=== PATIENT | female | born 1990 | race Caucasian/White ===

== ENCOUNTER 2019-02-25 00:03 | Inpatient (IN) | payer OTHER ==
[~2019-02-25] VITALS: Ht 177.8 cm; Wt 114.0 kg
--- OUTSIDE RECORDS SUMMARY | ~2019-02-25 | XMS | Clinical Summary ---
Demographics + + + | Address | [address] | | | [place] [address] | + + + | Home Phone | | + + + | Preferred Language | Unknown | + + + | Marital Status | | + + + | Scientologist Affiliation | 1013 | + + + | Race | Unknown | + + + | Ethnic Group | Unknown | + + + Author + + + | Author | [facility] | | | and [place] | + + + | Organization | [facility] | | | and [place] | + + + | Address | Unknown | + + + | Phone | Unavailable | + + + Support + + + + + | Name | Relationship | Address | Phone | + + + + + | Mac Crowe | ECON | [address] | | | | | [place], [place] | | | | | [address] | | + + + + + | Bernie Nino | ECON | Unknown | | + + + + + Care Team Providers + +------+ + | Care Co Founder And Chief Strategy Officer Name | Role | Phone | + +------+ + | Pablo Mercedes | PP | | | MD | | | + +------+ + Allergies + + + + + + | Active Allergy | Reactions | Severity | Noted | Comments | | | | | Date | | + + + + + + | Penicillins | | Medium | 07/13/20 | | | | | | 14 | | + + + + + + Medications + + + +---------+------+------+-------+ | Medication | Sig | Dispensed | Refills | Star | End | Statu | | | | | | t | Date | s | | | | | | Date | | | + + + +---------+------+------+-------+ | ergocalciferol | Take 1,000 Units by | | 0 | | | Activ | | (VITAMIN D-2) 50,000 | mouth Once a week. | | | | | e | | units capsule | | | | | | | + + + +---------+------+------+-------+ | Ascorbic Acid | Take 1,000 mg by | | 0 | | | Activ | | (VITAMIN C) 1000 MG | mouth Daily. | | | | | e | | tablet | | | | | | | + + + +---------+------+------+-------+ | 27-0.8 mg | Take 1 tablet by | | 0 | | | Activ | | multivitamin tablet | mouth Daily. | | | | | e | + + + +---------+------+------+-------+ | ibuprofen | Take 1 tablet by | 30 | 1 | 01/0 | | Activ | | (ADVIL,MOTRIN) 600 | mouth every 6 hours | tablet | | 4/20 | | e | | MG tablet | as needed for Pain. | | | 17 | | | + + + +---------+------+------+-------+ Active Problems + + + | Problem | Noted Date | + + + | Chronic insomnia | | + + + Family History + + +------+ + | Medical History | Relation | Name | Comments | + + +------+ + | Other (see comment) | Father | | night guard worker | + + +------+ + | Other (see comment) | Mother | | insomnia | + + +------+ + + +------+--------+ + | Relation | Name | Status | Comments | + +------+--------+ + | Brother | | Alive | | + +------+--------+ + | Father | | Alive | | + +------+--------+ + | Mother | | Alive | | + +------+--------+ + Social History + +-------+ +--------+------+ | Tobacco Use | Types | Packs/Day | Years | Date | | | | | Used | | + +-------+ +--------+------+ | Never Smoker | | | | | + +-------+ +--------+------+ + +---+---+---+ | Smokeless Tobacco: | | | | | Never Used | | | | + +---+---+---+ + + +---------+ + | Alcohol Use | Drinks/We | oz/Week | Comments | | | ek | | | + + +---------+ + | Yes | | | Rare - once a month | + + +---------+ + + + + | Sex Assigned at | Date Recorded | | | | + + + | Not on file | | + + + + + + + | Job Start Date | Occupation | Industry | + + + + | Not on file | Not on file | Not on file | + + + + + + + + | Travel History | Travel Start | Travel End | + + + + + + | No recent travel history available. | + + Last Filed Vital Signs + + + + | Vital Sign | Reading | Time Taken | + + + + | Blood Pressure | 136/87 | 10/17/2016799 PST | + + + + | Pulse | 73 | 10/17/2016799 PST | + + + + | Temperature | 36.8 C (98.2 F) | 10/17/2016799 PST | + + + + | Respiratory Rate | 16 | 10/17/2016799 PST | + + + + | Oxygen Saturation | 98% | 10/15/2016724 PST | + + + + | Inhaled Oxygen | - | - | | Concentration | | | + + + + | Weight | 108.9 kg (240 lb) | 10/14/20162222 PST | + + + + | Height | 177.8 cm (5' 10") | 10/14/20162222 PST | + + + + | Body Mass Index | 34.44 | 10/14/20162222 PST | + + + + Plan of Treatment + + + + + | Health Maintenance | Due Date | Last Done | Comments | + + + + + | Vaccine: | | | | | Dtap/Tdap/Td (1 - | 9 | | | | Tdap) | | | | + + + + + | Cervical Cancer | | | | | Screening (Pap) | 1 | | | + + + + + | Vaccine: Influenza | | | | | (Season Ended) | 9 | | | + + + + + Results Not on filefrom Last 3 Months Insurance + +--------+ +--------+ +---------+------+ | Payer | Benefi | Subscriber | Effect | Phone | Address | Type | | | t Plan | ID | dillan | | | | | | / | | Dates | | | | | | Group | | | | | | + +--------+ +--------+ +---------+------+ | [employer] | UNITED | [id number] | 12/13/19 | [phone] | | PPO | | | | | 14-Pre | 2 | | | | | HEALTH | | sent | | | | | | CARE | | | | | | | | PPO | | | | | | + +--------+ +--------+ +---------+------+ + +--------+ +--------+ + + | Guarantor Name | Accoun | Relation to | Date | Phone | Billing Address | | | t Type | Patient | of | | | | | | | | | | + +--------+ +--------+ + + | Carolyn Peralta | Person | Self [birth year] | [address] | | [place] | al/Fam | | 1989 | [phone] | [place] [address] | | | nimo | | | 6 (Home) | | + +--------+ +--------+ + + Advance Directives Patient has advance care planning documents, and code status on file. For more information, please contact:[facility] [place] [address] + + + + + | Code Status | Date | Date | Comments | | | Activated | Inactivated | | + + + + + | Full Code | 10/14/2016 | 10/17/2016 | | | | 21:24 | 19:01 | | + + + + +
--- NOTE | 2019-02-25 09:30 | PR ---
[facility] [address] [place], [place] [address] Signed Progress Notes IP Datetime Report Generated by CPN: 02/25/2019 09:30 PROGRESS NOTES: [id number] Impression: Reassuring heart rate Plan: Cervical Ripening Other Plans: Cook Cath Other Informed Consents: Cook Cath VITAL SIGNS: [id number] Vital Signs: Reviewed; Within Normal Limits EXAM: [id number] Dilatation: 1.5 Effacement: 60 Station: -3 Uterine Contractions: q 2-5 min, non-painful MEMBRANES: [id number] Membrane Status: Intact Comments: Called to pt room to evaluate FHT. Pt w/ prolonged decel @ 0838, then minimal variabiltiy with recurrent late decelerations. Intrauterine recussitation performed with IVF bolus, 02, and maternal repositioning. Now accelerations present and variability improved. Cervix still unripe. Discussed Cook cath for continued cervical ripening. Reviewed FHT and indications for should that be required. All questions answered and pt desires Cook Cath. Fetus A: [id number] FHR Baseline: 150 Variability: Minimal - Undetectable to <5bpm Accelerations: 15X15 Decelerations: Variable FHR Category: Category II Presentation: Vertex Comments on Fetus A: No evidence of metabolic acidosis Fetus B: [id number] Signing Physician: Becca Mederos DO Copies: ~ *Electronically Signed* 02/25/19 4246 BECCA MEDEROS DO PATIENT NAME: AMADEO WATSON PROGRESS NOTE DATE OF : 90 PHYSICIAN: BECCA MEDEROS DO [facility] #: [id number] REPORT IS CONFIDENTIAL AND NOT TO BE RELEASED WITHOUT AUTHORIZATION
--- NOTE | 2019-02-25 09:56 | PR ---
[facility] [address] [place], [place] [address] Signed Progress Notes IP Datetime Report Generated by LONNY: 02/25/2019 09:56 PROGRESS NOTES: [id number] Impression: Normal progression of labor; Reassuring heart rate Procedures: Sterile Vag Exam Other Procedures: Cook Cath placement Plan: Continue present management; Cervical Ripening Other Plans: Cook Cath Other Informed Consents: Cook Cath VITAL SIGNS: [id number] Vital Signs: Reviewed; Within Normal Limits EXAM: [id number] Dilatation: 2.0 Effacement: 80 Station: -3 Uterine Contractions: Irritability MEMBRANES: [id number] Membrane Status: Intact Comments: Pt seen and examined. Doing well. Reviewed reassuring FHT. Discussed Cook cath again and pt and agree. Cook cath placed per manufacture's instructions without difficulty. 40cc sterile water in uterine balloon, and 20cc in vaginal balloon. Will serially increase to 80cc/balloon. Continue cervical ripening Fetus A: [id number] FHR Baseline: 145 Variability: Moderate 6-25bpm Accelerations: 15X15 Decelerations: Variable FHR Category: Category II Presentation: Vertex Comments on Fetus A: No evidence of metabolic acidosis Fetus B: [id number] Signing Physician: Becca Medreos DO Copies: ~ *Electronically Signed* 02/25/19 0956 BECCA MEDEROS DO PATIENT NAME: AMADEO WATSON PROGRESS NOTE DATE OF : 90 PHYSICIAN: BECCA MEDEROS DO RPT #: [id number] REPORT IS CONFIDENTIAL AND NOT TO BE RELEASED WITHOUT AUTHORIZATION
--- NOTE | 2019-02-25 11:32 | PR ---
[facility] [address] [place], [place] [address] Signed Progress Notes IP Datetime Report Generated by LONNY: 02/25/2019 11:32 PROGRESS NOTES: [id number] Impression: Normal progression of labor; Reassuring heart rate Procedures: Artificial ROM; Intrauterine Pressure Catheter; Scalp Electrode; Sterile Vag Exam Other Procedures: Cook Cath placement Plan: Continue present management; Anesthesia consult; Anticipate Vaginal Delivery Other Plans: Cook Cath Other Informed Consents: AROM, IUPC, FSE VITAL SIGNS: [id number] Vital Signs: Reviewed; Within Normal Limits EXAM: [id number] Dilatation: 6.0 Effacement: 80 Station: -3 Uterine Contractions: q 2-3 m MEMBRANES: [id number] Membrane Status: Intact ROM Note: Reviewed AROM in detail and discussed risks/benefits. Vertex well applied and bulging bag noted. AROM performed without difficulty for moderate amount of clear fluid. IUPC and FSE then placed without difficulty. Comments: Pt seen and examined. Uncomfortable w/ contractions. Cook cath dilated cervix, noted to be in vagina, and removed. Cervix 6 / 80 w/ bulging bag noted. Variabile decelerations w/ moderate variability recently noted. Discussed AROM w/ placement of internal monitors, and pt and agree. AROM performed easily as above and IUPC and FSE placed w/out difficulty. Mother and baby tolerated well. Pt desires epidural. Reviewed anticipated course of labor. All questions answered Fetus A: [id number] FHR Baseline: 140 Variability: Moderate 6-25bpm Accelerations: 15X15 Decelerations: Variable FHR Category: Category II Presentation: Vertex Other Presentation: AZAR Comments on Fetus A: No evidence of metabolic acidosis Fetus B: [id number] Signing Physician: Becca Mederos DO *Electronically Signed* 02/25/191131 BECCA MEDEROS DO PATIENT NAME: WALTERAMADEO PROGRESS NOTE DATE OF : 90 PHYSICIAN: BECCA MEDEROS DO RPT #: [id number] REPORT IS CONFIDENTIAL AND NOT TO BE RELEASED WITHOUT AUTHORIZATION [address] [place] [address] Signed Copies: ~ *Electronically Signed* 02/25/191131 BECCA MEDEROS DO PATIENT NAME: WALTERAMADEO PROGRESS NOTE DATE OF : 90 PHYSICIAN: BECCA MEDEROS DO RPT #: [id number] REPORT IS CONFIDENTIAL AND NOT TO BE RELEASED WITHOUT AUTHORIZATION
--- NOTE | 2019-02-25 12:17 | PR ---
[facility] [address] [place], [place] [address] Signed Progress Notes IP Datetime Report Generated by LONNY: 02/25/2019 12:17 PROGRESS NOTES: [id number] Impression: Normal progression of labor Procedures: Artificial ROM; Intrauterine Pressure Catheter; Scalp Electrode; Sterile Vag Exam Other Procedures: Cook Cath placement Plan: Anesthesia consult Other Plans: Intrauterine recussitation Informed Consent Obtain: Vaginal Delivery; Section Delivery Other Informed Consents: AROM, IUPC, FSE VITAL SIGNS: [id number] Vital Signs: Reviewed; Within Normal Limits EXAM: [id number] Dilatation: 6.0 Effacement: 80 Station: -2 Uterine Contractions: q 1-2 minutes MEMBRANES: [id number] Membrane Status: Intact ROM Note: Reviewed AROM in detail and discussed risks/benefits. Vertex well applied and bulging bag noted. AROM performed without difficulty for moderate amount of clear fluid. IUPC and FSE then placed without difficulty. Comments: Called to pt room for prolonged deceleration. Variable decel down to _60 for 2-3 minutes. FHT improved w/ repositioning, O2, and IV fluid bolus. Anesthesia @ bedside to place epidural, but has not started procedure. Will continue hands/knees. If FHT reassuring, will proceed with epidural. Will consider amnioinfusion and possible terb for tachysystole. No pitocin. Fetus A: [id number] FHR Baseline: 130 Variability: Moderate 6-25bpm Accelerations: 15X15 Decelerations: Variable; Prolonged FHR Category: Category II Presentation: Vertex Other Presentation: AZAR Comments on Fetus A: prolonged variable deceleration w/ recent accelerations Fetus B: [id number] Signing Physician: Becca Mederos DO *Electronically Signed* 02/25/191216 BECCA MEDEROS DO PATIENT NAME: AMADEO WATSON PROGRESS NOTE DATE OF : 90 PHYSICIAN: BECCA MEDEROS DO RPT #: [id number] REPORT IS CONFIDENTIAL AND NOT TO BE RELEASED WITHOUT AUTHORIZATION [address] [place], [place] [address] Signed Copies: ~ *Electronically Signed* 02/25/191216 BECCA MEDEROS DO PATIENT NAME: AMADEO WATSON PROGRESS NOTE DATE OF : 90 PHYSICIAN: BECCA MEDEROS DO RPT #: [id number] REPORT IS CONFIDENTIAL AND NOT TO BE RELEASED WITHOUT AUTHORIZATION
--- NOTE | 2019-02-25 12:26 | PR ---
[facility] [address] [place], [place] [address] Signed Progress Notes IP Datetime Report Generated by LONNY: 02/25/2019 12:26 PROGRESS NOTES: [id number] Impression: Reassuring heart rate Procedures: Amnio Infusion Other Procedures: Terb Plan: Anesthesia consult Other Plans: Intrauterine recussitation Informed Consent Obtain: Risks, Benefits and Alternatives Discussed Other Informed Consents: Amnioinfusion, Terb, indications for if needed VITAL SIGNS: [id number] Vital Signs: Reviewed; Within Normal Limits EXAM: [id number] Dilatation: 6.0 Effacement: 80 Station: -2 Uterine Contractions: q 1-2 minutes MEMBRANES: [id number] Membrane Status: Intact Amniotic Fluid Color: Clear ROM Note: Reviewed AROM in detail and discussed risks/benefits. Vertex well applied and bulging bag noted. AROM performed without difficulty for moderate amount of clear fluid. IUPC and FSE then placed without difficulty. Comments: Reviewed progress w/ pt and improved FHT. Will give one dose terbulaline and will start amnioinfusion (300cc bolus then 100cc/hr continuous). Ok to proceed with epidural. Reviewed indications for delivery if needed, and pt states that she would very much like to avoid if possible. All questions answered Fetus A: [id number] FHR Baseline: 135 Variability: Minimal - Undetectable to <5bpm Accelerations: 15X15 Decelerations: Early; Late FHR Category: Category II Presentation: Vertex Other Presentation: AZAR Comments on Fetus A: prolonged variable deceleration w/ recent accelerations Fetus B: [id number] Signing Physician: Becca Mederos DO *Electronically Signed* 02/25/19 1226 BECCA MEDEROS DO PATIENT NAME: AMADEO WATSON PROGRESS NOTE DATE OF : 90 PHYSICIAN: BECCA MEDEROS DO RPT #: [id number] REPORT IS CONFIDENTIAL AND NOT TO BE RELEASED WITHOUT AUTHORIZATION [address] [place] [address] Signed Copies: ~ *Electronically Signed* 02/25/19 [facility] ORINDABECCA DO PATIENT NAME: AMADEO WATSON PROGRESS NOTE DATE OF : 90 PHYSICIAN: BECCA MEDEROS DO RPT #: [id number] REPORT IS CONFIDENTIAL AND NOT TO BE RELEASED WITHOUT AUTHORIZATION
--- NOTE | 2019-02-25 12:51 | PR ---
[facility] [address] [place], [place] [address] Signed Progress Notes IP Datetime Report Generated by LONNY: 02/25/2019 12:51 PROGRESS NOTES: [id number] Impression: Normal progression of labor; Reassuring heart rate Procedures: Sterile Vag Exam Other Procedures: Terb Plan: Continue present management Other Plans: Intrauterine recussitation Informed Consent Obtain: Risks, Benefits and Alternatives Discussed Other Informed Consents: Amnioinfusion, Terb, indications for if needed VITAL SIGNS: [id number] Vital Signs: Reviewed; Within Normal Limits EXAM: [id number] Dilatation: 7.0 Effacement: 90 Station: -2 Uterine Contractions: q 2 minutes MEMBRANES: [id number] Membrane Status: Intact Amniotic Fluid Color: Clear ROM Note: Reviewed AROM in detail and discussed risks/benefits. Vertex well applied and bulging bag noted. AROM performed without difficulty for moderate amount of clear fluid. IUPC and FSE then placed without difficulty. Comments: Pt seen and examined. Much more comfortable w/ epidural. Ctxs now regular q 2-3 minutes s/p one dose terbutaline. Amnioinfusion running, and while variable decelerations still present are improved. Cx now 7/90/-2. Will continue position changes to encourage cervical dilation and descent. All questions answered Fetus A: [id number] FHR Baseline: 150 Variability: Moderate 6-25bpm Accelerations: 15X15 Decelerations: Variable FHR Category: Category II Presentation: Vertex Other Presentation: ROT Comments on Fetus A: No evidence of metabolic acidosis. Fetus B: [id number] Signing Physician: Becca Mederos DO *Electronically Signed* 02/25/19 125 BECCA MEDEROS DO PATIENT NAME: AMADEO WATSON PROGRESS NOTE DATE OF : 90 PHYSICIAN: BECCA MEDEROS DO RPT #: [id number] REPORT IS CONFIDENTIAL AND NOT TO BE RELEASED WITHOUT AUTHORIZATION [address] [place] [address] Signed Copies: ~ *Electronically Signed* 02/25/19 [facility] MEDEROSBECCA DO PATIENT NAME: AMADEO WATSON PROGRESS NOTE DATE OF : 90 PHYSICIAN: BECCA MEDEROS DO RPT #: [id number] REPORT IS CONFIDENTIAL AND NOT TO BE RELEASED WITHOUT AUTHORIZATION
--- NOTE | 2019-02-26 09:40 | PR ---
[facility] [address] [facility] [place], [place] [address] Signed PP Progress Notes Datetime Report Generated by CPN: 02/26/2019 09:40 SUBJECTIVE: [id number] Pain: Within normal limits Nausea/Vomiting: Denies Flatus: Yes Bowel Movement: No Vital Signs: [id number] Vital Signs: Reviewed; Within Normal Limits EXAM: [id number] Cardiovascular: Normal Respiratory: Normal Abdomen/Uterus: Normal Lochia: Normal Vulva/Perineum: Not Done Breasts: Not Done CVA Tenderness: Normal Extremities: Normal Incision: Not Applicable Progress: Normal Exam Comments: Fundus firm U-2 nontender IMPRESSION/PLAN/PROCEDURES: [id number] Impression: Normal progression Plan: Discharge Progress Notes: Pt seen and examined. Doing well. Ambulating, voiding, and tolerating full diet. Pain and lochia minimal. Breast feeding well. No fevers/chills or other concerns. Desires d/c home. Reviewed d/c instructions in detail. All questions answered Signing Physician: Becca Mederos DO Copies: ~ *Electronically Signed* 02/26/19 0940 BECCA MEDEROS DO PATIENT NAME: AMADEO WATSON PROGRESS NOTE DATE OF : 90 PHYSICIAN: BECCA MEDEROS DO RPT #: [id number] REPORT IS CONFIDENTIAL AND NOT TO BE RELEASED WITHOUT AUTHORIZATION
== END 2019-02-26 15:50 | disposition home or self-care (01) | DRG 807 ==
LOC: FBC 00:03
PROVIDERS: ADMIT Obstetrics & Gynecology
PROC: 10E0XZZ Delivery of Products of Conception, External Approach (ICD-10-PCS; principal; 2019-02-25)
PROC: 0KQM0ZZ Repair Perineum Muscle, Open Approach (ICD-10-PCS; 2019-02-25)
PROC: 0UQMXZZ Repair Vulva, External Approach (ICD-10-PCS; 2019-02-25)
PROC: 10907ZC Drainage of Amniotic Fluid, Therapeutic from Products of Conception, Via Natural or Artificial Opening (ICD-10-PCS; 2019-02-25)
PROC: 3E0P7VZ Introduction of Hormone into Female Reproductive, Via Natural or Artificial Opening (ICD-10-PCS; 2019-02-25)
PROC: 0U7C7ZZ Dilation of Cervix, Via Natural or Artificial Opening (ICD-10-PCS; 2019-02-25)
PROC: 10H07YZ Insertion of Other Device into Products of Conception, Via Natural or Artificial Opening (ICD-10-PCS; 2019-02-25)
PROC: 00HU33Z Insertion of Infusion Device into Spinal Canal, Percutaneous Approach (ICD-10-PCS; 2019-02-25)
PROC: 3E0R3BZ Introduction of Anesthetic Agent into Spinal Canal, Percutaneous Approach (ICD-10-PCS; 2019-02-25)
DX: O26.03 Excessive weight gain in pregnancy, third trimester (principal); Z37.0 Single live birth; Z3A.39 39 weeks gestation of pregnancy; O76 Abnormality in fetal heart rate and rhythm complicating labor and delivery; O99.62 Diseases of the digestive system complicating childbirth; K21.9 Gastro-esophageal reflux disease without esophagitis; O70.1 Second degree perineal laceration during delivery; O71.82 Other specified trauma to perineum and vulva; Z88.0 Allergy status to penicillin
CPT/HCPCS: 36415; 85027; J2370; J2590; J3105

== ENCOUNTER 2021-04-06 07:55 | Day surgery (SDC) | payer OTHER ==
[~2021-04-06] VITALS: Ht 177.8 cm; Wt 75.0 kg
--- NOTE | 2021-04-06 12:01 | NUR ---
04/06/21 1201 Kirsten Harris 1155- PT ARRIVES TO PACU NONAROUSABLE TO NOXIOUS STIMULI WITH AN OPA IN PLACE. RESP EVEN AND UNLABORED. OXYGEN SAT HIGH 90'S TO 100% ON 6L VIA MASK. 1159- PT AROUSING ON HER OWN AND YAWNS. OPA REMOVED. PT UPDATED THAT SHE IS IN THE RECOVERY ROOM. PT NODS AND FALLS BACK TO SLEEP.
--- NOTE | 2021-04-06 13:07 | NUR ---
PATIENT BACK IN DAY SURGERY ROOM FROM PACU. RATES PAIN 3/10 IN ABDOMEN. DENIES NAUSEA. DROWSY. VS CHECKED. ABDOMEN WITH 3 LAPAROSCOPIC SITES WITH BANDAIDS. UMBILICAL BANDAID HAS SCANT AMOUNT OF DRAINAGE. LATERAL BANDAIDS CLEAN, DRY AND INTACT. YADAV IN PLACE. SCDs ON. CALL LIGHT WITHIN REACH. AT BEDSIDE. ICE WATER PLACED ON BEDSIDE TABLE.
[2021-04-06] MEDS ORDERED: HYDROCODON-ACE1 EA10 PO (13:21)
[2021-04-06] MEDS ORDERED: IBUPROFEN800 MG PO (13:21)
--- NOTE | 2021-04-06 13:42 | NUR ---
1330: CLARIFIED YADAV DC TIME WITH DR. SILVERMAN. YADAV CATHETER REMOVED. PATIENT TOLERATED YADAV DC WELL. NO OTHER NEEDS AT THIS TIME. AT BEDSIDE. CALL LIGHT WITHIN REACH.
--- NOTE | 2021-04-06 14:02 | NUR ---
VS CHECKED. RATES PAIN 3/10. GIVEN CRACKERS TO EAT. TOLERATING WATER. IV SITE WNL. AT BEDSIDE. CALL LIGHT WITHIN REACH.
--- NOTE | 2021-04-06 15:42 | NUR ---
1500: PATIENT ASSISTED OOB AND TO BATHROOM. GAIT STEADY. VOID 600 ML. GAIT STEADY BACK TO ROOM. PATIENT GETTING DRESSED. 1510: PATIENT MEDICATED FOR PAIN WITH 1 TAB OF PERCOCET. PATIENT REQUESTS PRESCRIPTION FOR ZOFRAN AT HOME TO TAKE WITH [place]CO DUE TO HISTORY OF NAUSEA AND VOMITING WITH NARCOTICS. 1530: DR. SILVERMAN CALLED FOR ZOFRAN PRESCRIPTION. ORDE RECEIVED TO GIVE ONE DOSE WHILE IN DAY SURGERY. DR. SILVERMAN STATED HE WOULD ELECTRONICALLY SEND A PRESCRIPTION FOR ZOFRAN AT HOME. DISCHARGE INSTRUCTIONS GIVEN TO PATIENT AND . IV ZOFRAN GIVEN. IV DC'D WNL. TIP INTACT. DRESSING APPLIED. 1533: PATIENT WALKED TO BATHROOM INDEPENDENTLY. PATIENT DISCHARGED TO HOME WITH VIA WHEELCHAIR.
--- NOTE | 2021-04-10 21:48 | PATH ---
[facility] [address] [place], [place] [address] Signed SPECIMEN(S): A UTERUS, TUBES, CERVIX AND LEFT OVARY SPECIMEN SOURCE: A. UTERUS, TUBES, CERVIX AND LEFT OVARY CLINICAL HISTORY: Pelvic congestion syndrome FINAL PATHOLOGIC DIAGNOSIS: Uterus, cervix, left ovary, and bilateral fallopian tubes, hysterectomy, bilateral salpingectomy, and unilateral oophorectomy: - Cervix: No histopathologic abnormality. - Endometrium: Weakly proliferative endometrium. - Myometrium: No histopathologic abnormality. - Serosa: No histopathologic abnormality. - Left ovary: Cystic follicles, hemorrhagic corpus luteum cyst. - Fallopian tubes: Focal endometriosis of the left tube, paratubal cysts. - No evidence of malignancy. NAL:cml:C2NR MICROSCOPIC EXAMINATION: Histologic sections of all submitted blocks are examined by light microscopy. A focus of endometrial type glands with stromal breakdown and hemorrhage is seen in the left fallopian tube lumen. A CD10 immunostain (with appropriately staining controls) highlights the endometrial stroma with strong reactivity, supporting the diagnosis of endometriosis. These findings, together with the gross examination, support the pathologic diagnosis. GROSS DESCRIPTION: The specimen, labeled "Carolyn Watson," is received in formalin and consists of 103 gram uterus and cervix with attached left tubo-ovarian complex and separate within the container is the right fallopian tube. The uterus is 3.9 x 3.7 x 8.8 cm (cornu-cornu x anterior-posterior x fundus-ectocervix). The serosal surface is violaceous and smooth. The ectocervical mucosa is pale pink and smooth. Serial sectioning of the cervix fails to demonstrate any gross abnormalities. The triangular endometrial cavity is lined by a pink smooth and focally congested endometrium that has an average thickness of 0.2 cm. Sectioning through the uterus reveals a pink moderately trabeculated myometrium. No mass lesions are grossly identified. PATIENT NAME: CAROLYN AWTSON PATHOLOGY DATE OF : [birth year] REPORT #: [id number] PHYSICIAN: NEVAEH PATHOLOGY PCP: CHATA AMBROSIO MD REPORT IS CONFIDENTIAL AND NOT TO BE RELEASED WITHOUT AUTHORIZATION [facility] [address] [place], [place] [address] Signed The left tubo-ovarian complex has a 7.1 x 0.7 cm fallopian tube with delicate fimbriae and paratubal cysts. The serosa is violaceous and smooth. Cut sections reveal a pinpoint lumen. The 3.2 x 2.5 x 1.8 cm ovary has a pink and smooth external surface. Serial sectioning reveals a pink-white variegated ovarian parenchyma with multiple clear watery fluid-filled cysts. No papillary excrescence is grossly identified. The right fallopian tube is 6.8 x 0.9cm. The serosa is violaceous and smooth. Cut sections reveal a pinpoint lumen. Records And Tape Recordings Engineer sections are submitted in five cassettes. Cassette summary: (A1-A2) left tubo-ovarian complex (A3) cervix (A4) uterine wall (A5) right fallopian tube. FB (under the direct supervision of a pathologist) The Gross Description was prepared using a voice recognition system. The report was reviewed for accuracy; however, sound-alike word errors, addition and/or deletions may occur. If there is any question about this report, please contact Client Services. ADDITIONAL NOTES: Immunohistochemical and/or in situ hybridization studies were performed on this case with the appropriate positive controls that react as expected. This test was developed and its performance characteristics determined by [facility]. It has not been cleared or approved by the U.S. Food and Drug Administration. The FDA has determined that such clearance or approval is not necessary. This test is used for clinical purposes. It should not be regarded as investigational or for research. [facility] is certified under the Clinical Laboratory Improvement Amendments of 1988 (CLIA) as qualified to perform high complexity clinical laboratory testing. This assay has not been validated for specimens that have been decalcified. PERFORMING LABORATORY: The technical component was performed by [facility], [address] [place] [id number] (Gas Plumbing Inspector: Fabiana Pelayo MD; CLIA# [id number]). Professional interpretation was performed by [facility], [address] [address] (CLIA# [id number]). PATIENT NAME: CAROLYN WATSON PATHOLOGY DATE OF : [birth year] REPORT #: [id number] PHYSICIAN: NEVAEH PATHOLOGY PCP: CHATA AMBROSIO MD REPORT IS CONFIDENTIAL AND NOT TO BE RELEASED WITHOUT AUTHORIZATION [facility] [address] [place], [place] [address] Signed Diagnostician: Ann Lennon MD Pathologist Electronically Signed 04/10/2021 Copies: ~ PATIENT NAME: WALTERCAROLYNKAELA GARCIA PATHOLOGY DATE OF : [birth year] REPORT #: [id number] PHYSICIAN: NEVAEH CALDWELL PCP: CHATA AMBROSIO MD REPORT IS CONFIDENTIAL AND NOT TO BE RELEASED WITHOUT AUTHORIZATION
--- NOTE | 2021-04-28 23:15 | OR ---
[facility] [address] [place] [id number] Signed DATE OF OPERATION: 04/06/2021 SURGEON: Becca Mederos DO PREOPERATIVE DIAGNOSES: 1. Pelvic congestion syndrome. 2. Chronic pelvic pain. POSTOPERATIVE DIAGNOSES: 1. Pelvic congestion syndrome. 2. Chronic pelvic pain. PROCEDURES PERFORMED: 1. Total laparoscopic hysterectomy. 2. Left salpingo-oophorectomy. 3. Right salpingectomy. 4. Cystoscopy. ANESTHESIA: General. ESTIMATED BLOOD LOSS: 20 mL. METAL CUTTER: Gema Bae DO. COMPLICATIONS: None. FINDINGS: Normal uterus, bilateral tubes, and ovaries. Bilateral adnexal varicosities and on cystoscopy, normal bladder, bilateral ureteral jets, and significant varicosities in the right trigone. COMPLICATIONS: None. INDICATIONS: Ms. Watson is a very pleasant 30-year-old G2, P2, white female with a history of Electronically Signed By: BECCA MEDEROS DO 04/28/21 2315 PATIENT NAME: AMADEO WATSON OPERATIVE REPORT DATE OF : [birth year] REPORT #: [id number] PHYSICIAN: BECCA MEDEROS DO PCP: CHATA AMBROSIO MD REPORT IS CONFIDENTIAL AND NOT TO BE RELEASED WITHOUT AUTHORIZATION [facility] [address] [place] [id number] Signed pelvic pain and heaviness. She underwent evaluation for possible pelvic congestion and was referred to Vascular Surgery, where she received ovarian vein coiling. She reports no improvement of her symptoms and vascular surgeon recommended proceeding with hysterectomy, LSO for treatment. Risks, benefits, and alternatives were discussed in detail with the patient. The patient understands and wished to proceed with procedure. TECHNIQUE: The patient was taken to the operating room where a time-out was performed to confirm correct patient and correct procedure. General anesthesia was adequately established. The patient was prepped and draped in the dorsal lithotomy position with her feet in Yellofin stirrups. ICPs were on and running and no preoperative heparin was indicated. She did receive Ancef 2 g preoperatively. A weighted speculum was placed in the vagina, and the anterior lip of the cervix was grasped with an Allis clamp. The cervix was dilated using Hegar dilators and a VCare uterine manipulator was placed without difficulty. Mishra catheter was inserted. The surgeon's gloves were changed. Attention was turned to the abdomen. The base of the umbilicus was infiltrated with 0.25% Marcaine with epinephrine and a 5 mm stab incision was made using an 11 blade. A 5 mm trocar was then used to establish pneumoperitoneum with direct visual entry method. Pneumoperitoneum was easily established without difficulty with low opening pressures noted. Survey of the abdomen and pelvis was performed. It demonstrates normal liver, gallbladder, stomach, omentum, uterus, fallopian tubes and ovaries bilaterally. Significant bilateral adnexal varicosities were appreciated. We had previously discussed that should bilateral varicosities be discovered at the time of laparoscopy that we would proceed with LSO and retain the right ovary as patient does have no symptoms on the right. Decision was made to proceed as planned. The left infundibulopelvic ligament was identified as well as the ureter on the left. The peritoneum superior to the infundibulopelvic ligament was grasped, elevated, and nicked using surgical christina. Retroperitoneal isolation of the infundibulopelvic ligament was then performed and once it was isolated, a LigaSure device was used to fulgurate and divide the infundibulopelvic ligament just above the pelvic brim. An Endoloop device was then used to secure mechanically the end of the infundibulopelvic ligament. Again, the ureter had previously been identified, noted to be well away from this pedicle. Dissection was then carried down to the round ligament on the left. The round ligament was fulgurated, divided, and the leaves of the broad ligament were developed. The anterior leaf was dissected down to the vaginal cup above the bladder and dissection was carried across the superior portion of the vaginal cuff and the bladder was pushed well below the vaginal cup. The posterior leaves of the broad ligament were fulgurated and divided down to the angle of the uterosacral ligament and across the posterior edge of the vaginal cup. The left uterine vasculature was identified, fulgurated, and divided with excellent hemostasis. Attention was then turned to the right. The right fallopian tube was grasped at the fimbriated end and divided along the mesosalpinx using LigaSure device. The fallopian tube was then divided at the cornu and delivered and sent to Electronically Signed By: BECCA MEDEROS DO 04/28/21 8978 PATIENT NAME: AMADEO WATSON OPERATIVE REPORT DATE OF : [birth year] REPORT #: [id number] PHYSICIAN: BECCA MEDEROS DO PCP: CHATA AMBROSIO MD REPORT IS CONFIDENTIAL AND NOT TO BE RELEASED WITHOUT AUTHORIZATION [address] [address] Signed pathology for further evaluation. The right utero-ovarian ligament was fulgurated and divided. The right round ligament was fulgurated and divided. The leaves of the broad ligament were divided just as on the other side and the bladder again pushed well below the vaginal cup. The posterior leaf was divided and uterine vasculature was identified, fulgurated, and divided with excellent hemostasis. Colpotomy was then performed using a Sonicision device with excellent hemostasis noted. The cervix, uterus, left tube and ovary were delivered into the vagina where pneumoperitoneum was established. The pelvis was irrigated and found to be hemostatic. Colpotomy was then repaired using 0 V-Loc suture with Endostitch device. The suture was passed through the right uterosacral ligament and vaginal epithelium was incorporated in each bite. This was carried across incorporating the left uterosacral ligament. The suture was brought back towards the midline to lock it in place. Unfortunately, the suture broke. In order to ensure that the barbed suture was secured. A second 0 V-Loc suture was then applied incorporating just medial to the left uterosacral ligament taken across the midline for several sutures and then back towards to the left uterosacral ligament. This was then tied into the tail of the first V-Loc suture using laparoscopic suture techniques with excellent results. Excellent hemostasis and apical support were appreciated. The pelvis was irrigated. Pneumoperitoneum was reduced and trocars removed. Trocar sites were repaired using 4-0 Monocryl subcuticular stitch with excellent hemostasis and cosmesis. Attention was then turned to the vagina. The uterus and left tube and ovary were delivered through the vagina and sent to pathology for further evaluation. The Mishra catheter was removed. A 70-degree cystoscope was then placed in the urethral meatus, advanced through the urethra and into the bladder with direct visualization. Normal urethra, bladder, and bilateral ureteral jets were appreciated. Significantly enlarged varicosities were noted on the right portion of the trigone incidentally. The bladder was drained. Mishra catheter was reinserted and the patient was taken to the PACU in good and stable condition. Sponge, needle, and instrument count was correct x2 at the end of the procedure. Dr. Bae was present and participated in all portions of procedure. A bimanual exam was performed of the vaginal cuff to ensure that the V-Loc suture repair of the colpotomy was strong. Becca Mederos DO [email or web address]/[email or web address] /[id number] Electronically Signed By: BECCA MEDEROS DO 04/28/21 2315 PATIENT NAME: AMADEO WATSON OPERATIVE REPORT DATE OF : [birth year] REPORT #: [id number] PHYSICIAN: BECCA MEDEROS DO PCP: CHATA AMBROSIO MD REPORT IS CONFIDENTIAL AND NOT TO BE RELEASED WITHOUT AUTHORIZATION [facility] [address] [place] [address] [place] [address] Signed Copies: ~ Electronically Signed By: BECCA MEDEROS DO 04/28/21 2315 PATIENT NAME: AMADEO WATSON OPERATIVE REPORT DATE OF : [birth year] REPORT #: [id number] PHYSICIAN: BECCA MEDEROS DO PCP: CHATA AMBROSIO MD REPORT IS CONFIDENTIAL AND NOT TO BE RELEASED WITHOUT AUTHORIZATION
== END 2021-04-06 15:33 | disposition home or self-care (01) ==
LOC: DS 07:55
PROVIDERS: ATTEND Obstetrics & Gynecology
PROC: 0UT94ZZ Resection of Uterus, Percutaneous Endoscopic Approach (ICD-10-PCS; principal; 2021-04-06 10:00)
PROC: 0UT14ZZ Resection of Left Ovary, Percutaneous Endoscopic Approach (ICD-10-PCS; 2021-04-06 10:00)
PROC: 0UT74ZZ Resection of Bilateral Fallopian Tubes, Percutaneous Endoscopic Approach (ICD-10-PCS; 2021-04-06 10:00)
DX: N83.12 Corpus luteum cyst of left ovary (principal); N80.2 Endometriosis of fallopian tube; N83.8 Other noninflammatory disorders of ovary, fallopian tube and broad ligament; N94.89 Other specified conditions associated with female genital organs and menstrual cycle; R10.2 Pelvic and perineal pain; Z88.0 Allergy status to penicillin
CPT/HCPCS: 00840; J0330; J1100; J1885; J2001; J2250; J2300; J2405; J2550; J2704; J3475; J3490; J7121

== ENCOUNTER 2021-04-21 21:48 | Emergency (ER) | payer OTHER ==
[~2021-04-21] VITALS: Ht 177.8 cm; Wt 74.8 kg
[~2021-04-21 21:48] MED LIST: HYDROCODON-ACE1 EA10 PO; IBUPROFEN800 MG PO
== END 2021-04-21 22:47 | disposition home or self-care (01) ==
LOC: ED 21:48
DX: N99.820 Postprocedural hemorrhage of a genitourinary system organ or structure following a genitourinary system procedure (principal); Z88.0 Allergy status to penicillin; Z90.710 Acquired absence of both cervix and uterus
CPT/HCPCS: 99283